=== PATIENT | male | born 1970 | race Caucasian/White ===

== ENCOUNTER 2016-11-12 13:13 | Emergency (ER) | payer OTHER ==
[2016-11-12 15:00] VITALS: BP 150/81
--- NOTE | 2016-11-12 15:19 | UC ---
Head Injury HPI - HPI Summary HPI Summary: 46 yo male with a hx of cervical fusion x 2 presents after a fall He states that this AM he slipped on ice and struck the back of his head Minimal neck pain but now has pain radiating to his left scapula which is what he noted in the past before the fusion no SHANNON no back pain - History Of Current Complaint Chief Complaint: UCHeadInjury Stated Complaint: FELL, HEAD/NECK/BACK Time Seen by Provider: 11/12/16 15:11 Hx Obtained From: Patient Onset/Duration: Sudden Onset Severity Currently: Mild Severity Initially: Moderate Pain Intensity: 3 Pain Scale Used: 0-10 Numeric Character: Dull, Throbbing Aggravating Factor(s): Other - turnin head Alleviating Factor(s): Other - c-collar Associated Signs And Symptoms: Negative: LOC (Time In Secs./Mins/Hrs), LOC Duration Unknown, Confusion, Memory Loss, Seizure, Epistaxis, Dental Malocclusion, Neck Pain, Nausea, Vomiting - Allergies/Home Medications Allergies/Adverse Reactions: Allergies Allergy/AdvReac Type Severity Reaction Status Date / Time Penicillins Allergy Unknown Verified 11/12/16 14:56 Reaction Details Home Medications: Home Medications Acetaminophen [Extra Strength Acetaminop] 1,000 mg PO PRN 11/12/16 [History] PMH/Surg Hx/FS Hx/Imm Hx Previously Healthy: Yes - Surgical History Surgical History: Yes Surgery Procedure, Year, and Place: C 3,4,5 fusion - Family History Known Family History: Positive: Hypertension - Social History Alcohol Use: Weekly Substance Use Type: None Smoking Status (MU): Heavy Every Day Tobacco Smoker Type: Cigarettes Amount Used/How Often: 1 ppd Length of Time of Smoking/Using Tobacco: 20 years Have You Smoked in the Last Year: Yes Review of Systems Constitutional: Negative Skin: Negative Eyes: Negative ENT: Negative Respiratory: Negative Cardiovascular: Negative Gastrointestinal: Negative Genitourinary: Negative Motor: Negative Neurovascular: Negative Musculoskeletal: Negative Neurological: Negative Psychological: Negative All Other Systems Reviewed And Are Negative: Yes Physical Exam Triage Information Reviewed: Yes Appearance: Well-Appearing, No Pain Distress, Well-Nourished Vital Signs: Initial Vital Signs Temp 99.0 F 11/12/16 14:51 Pulse 88 11/12/16 14:51 Resp 16 11/12/16 14:51 BP 150/81 11/12/16 14:51 Pulse Ox 96 11/12/16 14:51 Vital Signs Reviewed: Yes Eyes: Positive: Conjunctiva Clear ENT: Positive: Hearing grossly normal, Pharynx normal. Negative: Nasal congestion, Nasal drainage, Tonsillar exudate, Trismus, Muffled/hoarse voice Dental: Negative: Dental Fracture @ Neck: Positive: Supple, Nontender Respiratory: Positive: Lungs clear, Normal breath sounds, No respiratory distress, No accessory muscle use Cardiovascular: Positive: RRR, No Murmur, Pulses Normal Abdominal Exam: Normal Musculoskeletal: Positive: ROM Intact, No Edema Neurological: Positive: Alert, Muscle Tone Normal, Other: - normal gait/ strength 5/5, senory intact, CN 2-12 intact. Negative: Fatigued Psychological Exam: Normal Skin Exam: Normal Skin: Positive: rashes Head Injury Course/Dx - Differential Dx/Diagnosis Provider Diagnoses: cervical strain. DJD Discharge - Discharge Plan Condition: Stable Disposition: HOME Patient Education Materials: Cervical Strain (ED), Degenerative Disc Disease ( ED) Forms: *Work Release Referrals: Kal Huston MD [Medical Doctor] - If Needed Additional Instructions: wear soft collar or hard collar when up if they seem to help tylenol or advil for pain see neuro surgeon if pain radiating to left shoulder blade persists recheck here this weekend if not better
--- NOTE | 2016-11-12 15:52 | RAD ---
HISTORY: Trauma, neck injury, history of fusion COMPARISONS: None TECHNIQUE: Multiple contiguous axial CT scans were obtained of the cervical spine without intravenous contrast, with coronal and sagittal multiplanar reformations. FINDINGS: BRAIN: The visualized brain is unremarkable CENTRAL CANAL: Evaluation of the central canal is limited on CT technique; however, there is no obvious canalicular mass or epidural hemorrhage. ALIGNMENT: The alignment is normal, without subluxation or dislocation. VERTEBRAL BODIES: Patient is status post anterior cervical fusion at C3-C4. There is no hardware failure or osteolysis. Is multilevel anterolateral marginal osteophyte formation. There is no displaced fracture JOINTS: There is osteoarthritis of the atlantoaxial articulation with uncovertebral and facet hypertrophy. MUSCULATURE: Unremarkable INTERVERTEBRAL DISCS: There is diffuse loss of intervertebral disc height. Intervertebral graft material is noted at C3-C4 AXIAL IMAGES: C2-C3: There is no osseous neural foraminal narrowing or central canal stenosis. C3-C4: There is uncovertebral hypertrophy with moderate bilateral neural foraminal narrowing. There is no significant central canal stenosis. C4-C5: There is no osseous neural foraminal narrowing or central canal stenosis. C5-C6: There is no osseous neural foraminal narrowing or central canal stenosis. C6-C7: There is no osseous neural foraminal narrowing or central canal stenosis. C7-T1: There is no osseous neural foraminal narrowing or central canal stenosis. SOFT TISSUES: The visualized soft tissues of the neck are unremarkable. The prevertebral fat stripe is preserved. OTHER: None. IMPRESSION: 1. STATUS POST ANTERIOR CERVICAL FUSION. 2. DEGENERATIVE DISC DISEASE AND OSTEOARTHRITIS. 3. NO ACUTE OSSEOUS INJURY TO THE CERVICAL SPINE
== END 2016-11-12 16:25 | disposition home or self-care (01) ==
LOC: UCEAST 13:13
DX: S16.1XXA Strain of muscle, fascia and tendon at neck level, initial encounter (principal); W00.0XXA Fall on same level due to ice and snow, initial encounter; Y93.9 Activity, unspecified; Y92.9 Unspecified place or not applicable; M50.30 Other cervical disc degeneration, unspecified cervical region; M47.812 Spondylosis without myelopathy or radiculopathy, cervical region; Z88.0 Allergy status to penicillin; F17.210 Nicotine dependence, cigarettes, uncomplicated
CPT/HCPCS: 72125; 99202; G0463

== ENCOUNTER 2016-11-30 09:53 | Emergency (ER) | payer BC, OTHER ==
--- NOTE | 2016-11-30 11:21 | RAD ---
HISTORY: Bilateral lower extreme knee pain COMPARISONS: None relevant TECHNIQUE: Multiple transverse and longitudinal ultrasound images were obtained of the bilateral lower extremities from the level of the common femoral vein inferiorly through to the infrapopliteal veins using grayscale, color Doppler, and spectral Doppler imaging with and without compression and with augmentation. FINDINGS: VEINS: The venous system of the bilateral lower extremities is compressible throughout its course, with normal flow on color Doppler imaging and normal response to augmentation on spectral Doppler imaging. SOFT TISSUES: Unremarkable. OTHER FINDINGS: None. IMPRESSION: NO RIGHT LOWER EXTREMITY DEEP VEIN THROMBOSIS. NO LEFT LOWER EXTREMITY DEEP VEIN THROMBOSIS
[2016-11-30 11:33] VITALS: BP 145/96
--- NOTE | 2016-11-30 13:20 | ED ---
Lower Extremity - HPI Summary HPI Summary: Patient presents with bilateral calf and hamstring pain that began yesterday without incident. His muscles feel like he climbed a huge mountain or had a strenuous workout, which he had not. He denies SOB, CP, lightheadedness, N/T, weakness, difficulty walking or lower extremity swelling. He has not had fevers , chills, N/V/D, or viral illness. He has not had symptoms like this before. He does not have a regular provider. - History of Current Complaint Chief Complaint: EDExtremityUpper Stated Complaint: LEG PAIN Time Seen by Provider: 11/30/16 11:58 Hx Obtained From: Patient Mechanism Of Injury: Unknown Onset of Pain: Days - 1 Onset/Duration: Still Present Severity Initially: Mild Severity Currently: Severe Pain Intensity: 8 Timing: Constant, Lasting Days - 1 Location: Is Discrete @ - bilateral hamstrings and calves Character Of Pain: Aching Associated Signs And Symptoms: Positive: Negative Aggravating Factor(s): Movement, Other - sitting Alleviating Factor(s): Nothing Able to Bear Weight: Yes - Allergies/Home Medications Allergies/Adverse Reactions: Allergies Allergy/AdvReac Type Severity Reaction Status Date / Time Penicillins Allergy Unknown Verified 11/12/16 14:56 Reaction Details PMH/Surg Hx/FS Hx/Imm Hx Previously Healthy: Yes Endocrine/Hematology History: Denies: Hx Diabetes Cardiovascular History: Denies: Hx Hypertension, Hx Pacemaker/ICD Respiratory History: Denies: Hx Asthma History: Denies: Hx Renal Disease Sensory History: Denies: Hx Hearing Aid Psychiatric History: Denies: Hx Panic Disorder - Surgical History Surgery Procedure, Year, and Place: C 3,4,5 fusion X2 98, 2007; LEFT SHOULDER 15 YRS Infectious Disease History: No Infectious Disease History: Denies: History Other Infectious Disease, Traveled Outside the [place] in Last 30 Days - Family History Known Family History: Positive: Hypertension - Social History Occupation: Employed Full-time Lives: With Family Alcohol Use: Weekly Substance Use Type: Reports: None Smoking Status (MU): Heavy Every Day Tobacco Smoker Type: Cigarettes Amount Used/How Often: 1 ppd Length of Time of Smoking/Using Tobacco: 20 years Have You Smoked in the Last Year: Yes Cessation Counseling: Patient Advised to Stop Review of Systems Negative: Chills Negative: Chest Pain Negative: Shortness Of Breath Positive: Myalgia. Negative: Decreased ROM, Edema Negative: Bruising Negative: Weakness, Paresthesia, Numbness All Other Systems Reviewed And Are Negative: Yes Physical Exam Triage Information Reviewed: Yes Vital Signs On Initial Exam: Initial Vitals Temp Pulse Resp BP Pulse Ox 98.2 F 88 20 145/105 97 11/30/16 09:55 11/30/16 09:55 11/30/16 09:55 11/30/16 09:55 11/30/16 09:55 Vital Signs Reviewed: Yes Appearance: Positive: Well-Appearing, No Pain Distress, Well-Nourished Skin: Positive: Warm, Skin Color Reflects Adequate Perfusion, Dry, Soft Head/Face: Positive: Normal Head/Face Inspection Eyes: Positive: EOMI, THERON, Conjunctiva Clear ENT: Positive: Hearing grossly normal Respiratory/Lung Sounds: Positive: Clear to Auscultation, Breath Sounds Present Cardiovascular: Positive: RRR Musculoskeletal: Positive: Strength/ROM Intact, Pain @ - TTP bilateral calves and hamstrings, L>R; non-tender quads, knee, ankle, hips or feet.. Negative: Edema Left, Edema Right Neurological: Positive: Sensory/Motor Intact, Alert, Oriented to Person Place, Time, Reflexes Intact, NV Bundle Intact Distally. Negative: Babinski Left, Babinski Right Psychiatric: Positive: Affect/Mood Appropriate AVPU Assessment: Alert Diagnostics - Vital Signs Vital Signs Temp Pulse Resp BP Pulse Ox 11/30/16 11:32 98.3 F 85 16 145/96 97 11/30/16 09:55 98.2 F 88 20 145/105 97 - Laboratory Result Diagrams: 11/30/16 13:40 11/30/16 13:40 Lab Statement: Any lab studies that have been ordered have been reviewed, and results considered in the medical decision making process. Lower Extremity Course/Dx - Diagnoses Differential Diagnosis/HQI/PQRI: Positive: Arthritis, Bursitis, Cellulitis, Contusion, Infection, Phlebitis, Sprain, Strain Provider Diagnoses: Bilateral calf pain Discharge - Discharge Plan Condition: Stable Disposition: HOME Patient Education Materials: Musculoskeletal Pain (ED) Referrals: [facility] [place] [facility]IAN REFERRAL [Outside] Maria E Srivastava MD [Medical Doctor] - Additional Instructions: Please call Dr. Penny office for an appointment ESE in 1-3 days for evaluation. If she is not accepting new patients, please call the number provided to find a provider who is accepting new patients. Drink extra fluids and rest. Return to the emergency department if your symptoms worsen.
[2016-11-30 13:46] LABS: Hematocrit 52 % (42-52); Hemoglobin 17.2 g/dl (14.0-18.0); Mean Corpuscular HGB Conc 33 g/dl (31-36); Mean Corpuscular Hemoglobin 31 pg (27-31); Mean Corpuscular Volume 93 fL (80-94); Mean Platelet Volume 9 um3 (7.4-10.4); Red Blood Count 5.52 10^6/ul (4.0-5.4); Red Cell Distribution Width 13 % (10.5-15)
[2016-11-30 14:02] LABS: Albumin 4.3 g/dL (3.2-5.2); BUN/Creatinine Ratio 17.1 (8-20); C Reactive Protein 4.78 mg/L (< 5.00); Calcium 9.7 mg/dL (8.6-10.3); EGFR African American 129.5 (>60); EGFR Non-African American 100.7 (>60); Globulin 3.4 g/dL (2-4); Potassium 4.3 mmol/L (3.5-5.0); Total Bilirubin 0.5 mg/dL (0.2-1.0); Total Protein 7.7 g/dL (6.4-8.9)
[2016-11-30 14:40] LABS: TSH (Thyroid Stimulating Horm) 1.04 mcIU/mL (0.34-5.60)
[2016-11-30 15:31] LABS: Erythrocyte Sed Rate 5 mm/Hr (0-14)
== END 2016-11-30 16:00 | disposition home or self-care (01) ==
LOC: ED 09:53
DX: M79.662 Pain in left lower leg (principal); M79.661 Pain in right lower leg; Z88.0 Allergy status to penicillin; F17.210 Nicotine dependence, cigarettes, uncomplicated
CPT/HCPCS: 36415; 80053; 82550; 84443; 85025; 85652; 86140; 93970; 99282

== ENCOUNTER 2017-01-15 08:32 | Observation (INO) | payer OTHER ==
[~2017-01-15 08:32] MED LIST: Bacitracin IV* 50,000 UNITS INJ ONE; Buffered Lidocaine 1% SYRIN* 3 ML/SYR SYRINGE INTRADERM ONE; Lidocaine 1% MPF wEPI 200,000* 30 ML SDV ONE; NS 0.9% 1000 ML* 1,000 ML IV SCH; Thrombin 5,000 UNITS* 1 APPLIC KIT - topical use - TOPICAL ONE
[2017-01-15] MEDS ORDERED: Clindamycin 900 MG IVPREMIX(* 900 MG/50 ML SDV IV ONE (08:41)
[2017-01-15] MEDS ORDERED: fentaNYL* 50 MCG/ML 2 ML VIAL (100 MCG VIAL) ONE ×3 (09:36→12:49)
[2017-01-15] MEDS ORDERED: Midazolam* 1 MG/ML 2 ML VIAL (2 MG) ONE ×2 (09:36→10:18)
[2017-01-15] MEDS ORDERED: Dexamethasone IV* 4 MG/ML 1 ML (4 MG) ONE (10:17)
[2017-01-15] MEDS ORDERED: Famotidine IV* 10 MG/ML 2 ML (20 mg) ONE (10:17)
[2017-01-15] MEDS ORDERED: Rocuronium* 10 MG/ML VIAL ONE (10:17)
[2017-01-15] MEDS ORDERED: Lidocaine 2% PF * 5 ML VIAL ONE (10:17)
[2017-01-15] MEDS ORDERED: Ondansetron INJ* 2 MG/ML VIAL ONE (10:17)
[2017-01-15] MEDS ORDERED: Propofol* 10 MG/ML 20 ML BTL IV PUSH ONE (10:17)
[2017-01-15] MEDS ORDERED: Phenylephrine IV* 40 MCG/ML 10 ML SYRINGE ONE (10:39)
[2017-01-15] MEDS ORDERED: Desflurane* 240 ML INH ONE (10:49)
[2017-01-15] MEDS ORDERED: Acetaminophen TAB* 325 MG PO PRN ×2 (11:05→12:15)
[2017-01-15] MEDS ORDERED: DiMENhydriNATE IV* 50 MG/ML VIAL IV PUSH PRN (11:05)
[2017-01-15] MEDS ORDERED: PROCHLORPERAZINE INJ 5 MG/ML 2 ML VIAL IV PRN (11:05)
[2017-01-15] MEDS ORDERED: Levalbuterol 0.63MG/3ML NEB INH PRN (11:05)
[2017-01-15] MEDS ORDERED: Ondansetron INJ* 2 MG/ML VIAL IV PRN ×2 (11:05→12:15)
[2017-01-15] MEDS ORDERED: Hetastarch in NS* 500 ML IV ONE (11:15)
[2017-01-15] MEDS ORDERED: EPHEDrine (Pressors)* 50 MG/ML VIAL ONE (11:19)
[2017-01-15] MEDS: fentaNYL* 50 MCG/ML 2 ML VIAL (100 MCG VIAL) IV PRN ×2 (12:50→13:07)
--- NOTE | 2017-01-15 12:54 | RAD ---
INDICATION: Posterior cervical discectomy C6-C7. COMPARISON: Comparison is made with a prior x-ray study of the cervical spine from October 30, 2006. TECHNIQUE: 2 crosstable lateral films of the cervical spine were obtained in the operating room. FINDINGS: The C1-C6 4 vertebra are visualized. The lower cervical vertebra are obscured by the patient's shoulders. There are surgical instruments which project posterior. IMPRESSION: INTRAOPERATIVE CONTROL FILMS.
[2017-01-15] MEDS ORDERED: Nicotine PATCH 21 MG/24 HR* PATCH TRANSDERM SCH (13:00)
[2017-01-15] MEDS ORDERED: HYDROcodone/ACETAMIN 5-325 MG* 1 TAB ONE (13:04)
[2017-01-15] MEDS: HYDROcodone/ACETAMIN 5-325 MG* 1 TAB PO PRN ×3 (13:05→21:57)
[2017-01-15] MEDS ORDERED: Nicotine Patch Removal NOTE PATCH OFF SCH (21:00)
[2017-01-16] MEDS: HYDROcodone/ACETAMIN 5-325 MG* 1 TAB PO PRN ×2 (02:53→09:24)
--- NOTE | 2017-01-16 08:00 | PN ---
Progress Note - Progress Note SOAP: Subjective: [This is a 46 year old male s/p posterior cervical discectomy C6-7 on the left, POD #1. He complains of neck soreness and stiffness at the incision site. He is ambulating independently. He is eating and drinking well. Denies headache. Denies numbness, tingling, weakness and pain in the upper extremities. Pain well controlled with PO pain medication. He is eager to go home. ] Objective: [ Vital Signs: Temp Pulse Resp BP Pulse Ox 97.9 F 75 18 133/78 95 01/16/17 04:18 01/16/17 04:18 01/16/17 07:21 01/16/17 04:18 01/16/17 04:18 General: Alert and oriented. No distress. Sitting up in bed. Neuro: Motor and sensory intact. Incision: Intact and without swelling or infection. KERRY removed today. KERRY output 01/15/17 01/15/17 01/15/17 13:45 16:26 20:00 Output, KERRY #1 40 30 30 01/16/17 01/16/17 01/16/17 00:00 05:05 05:32 Output, KERRY #1 10 10 0 ] Assessment: [Satisfactory post-op. ] Plan: [1. Discharge home today. 2. Discharge instructions including wound care and activity level were discussed with the patient. ]
[2017-01-16 09:28] VITALS: BP 167/95
--- NOTE | 2017-01-18 05:03 | OP ---
DATE OF OPERATION: 01/15/17 - ROOM #331 DATE OF : 68 SURGEON: Kal Huston MD. SUPERVISOR MACHINING: ASHLIE Bowers. ANESTHESIOLOGIST: Dr. Estevez ANESTHESIA: General. PRE-OP DIAGNOSIS: Herniated nucleus pulposus, C6-7 on the left. POST-OP DIAGNOSIS: Herniated nucleus pulposus, C6-7 on the left. OPERATIVE PROCEDURE: Posterior cervical diskectomy, C6-7 on the left, with microdissection. DESCRIPTION OF PROCEDURE: After satisfactory general anesthesia was obtained, the patient was placed on the operating table in the prone position with the chest supported on the chest rolls and the head maintained in slight neck flexion utilizing the Shaw headrest. The posterior cervical region was then clipped, prepped and draped in a sterile manner for posterior cervical exposure and a skin incision outlined from C5 down to C7. This incision was infiltrated with 1% Xylocaine with epinephrine, after which it was turned down sharply to the level of the cervical fascia. The fascia was divided along the spinous processes from C5 to C7 on the left side and the paraspinal musculature was stripped away from these posterior elements using the periosteal elevator and monopolar cautery. An intraoperative radiograph was obtained which was difficult to interpret the location of the spinous processes due to the patient' s body habitus. Additional superior exposure was obtained until the C2 spinous process could be felt and the posterior spinous processes palpated until the correct C6-7 level was identified. Utilizing the Midas Bennett drill, the inferior aspect of the C6 lamina and superior aspect of the C7 lamina as well as the medial aspect of the facet complex was thinned out. A decompression was then carried out until the C7 nerve root was noted to be freed in its course. Hemostasis was obtained with the bipolar forceps and temporary Gelfoam. At this point of the procedure, the operating microscope was brought into the field and the remainder of the procedure done under microscopic visualization. Initially there was noted to be disk projecting into the axillary region of the nerve root exposure. An opening was made in the posterior longitudinal ligament and multiple fragments of disk removed from this region. This enabled the C7 nerve root to be more free in its course. Additional exploration was then performed of the shoulder region of the exposure and indeed several free fragments and disk material presented into this area as well. These were removed with microdissection. After assuring adequate hemostasis, the wound was thoroughly irrigated, after which a piece of Gelfoam was placed over the laminectomy defect. A drain was placed in the epidural space and tunneled out towards the left side. The fascia was then reapproximated with 0 Vicryl sutures. The subcutaneous tissue was closed with 3-0 Vicryl suture, and the skin closed with skin clips. The estimated blood loss was 100 cc and the final sponge, padding, and needle counts were correct. The patient was taken to the recovery room, extubated, and in stable condition. [id number]/[facility] #: [id number] [facility]ITALHollis
--- NOTE | 2017-01-24 01:28 | DS ---
DISCHARGE SUMMARY: DATE OF ADMISSION: 01/15/17 DATE OF DISCHARGE: 01/16/17 DISCHARGE DIAGNOSES: 1. Cervical disk displacement, C6-7, left. 2. History of anterior cervical diskectomy and fusion, C3-4 and C4-5. SPECIAL PROCEDURE: Posterior cervical diskectomy, C6-7 on the left. HOSPITAL COURSE: This 46-year-old male was seen in office with signs and symptoms of a cervical radiculopathy to the left resulting from a fall on ice on 11/12/16 at work. He failed to improve with conservative treatment over the next several weeks. Imaging confirmed disk herniation at the C6-7 to the left consistent with the patient's symptoms. At this time, he is admitted for elective surgical intervention. On the day of admission, he was taken to surgery where under general anesthesia, a posterior cervical diskectomy at C6-7 on the left patient was carried out. Postoperatively, feeling well. He was ambulating independently. Pain was well controlled with oral pain medications. He was eating, drinking and voiding without difficulty. He only complained of mild posterior neck soreness. On the first postoperative day, he was discharged home to the care of the family. Discharge instructions including wound care and activity level were discussed with the patient and provided at discharge. He will be seen in office in approximately 7 to 10 days for followup and staple removal. DISCHARGE MEDICATIONS: 1. Venedocia 5/325 mg two tabs by mouth every 4 hours as needed for pain. 2. Cyclobenzaprine 10 mg one tab up to 3 times daily as needed for muscle spasm. ASHLIE RAMIREZ [id number]/[facility] #: [id number] DARVIN
== END 2017-01-16 09:50 | disposition home or self-care (01) ==
LOC: OR 08:32 → SSU 14:36
PROVIDERS: ADMIT Neurological Surgery; ATTEND Neurological Surgery
PROC: 01N10ZZ Release Cervical Nerve, Open Approach (ICD-10-PCS; 2017-01-15)
PROC: 0RB30ZZ Excision of Cervical Vertebral Disc, Open Approach (ICD-10-PCS; principal; 2017-01-15 10:00)
DX: M50.223 Other cervical disc displacement at C6-C7 level (principal); F17.210 Nicotine dependence, cigarettes, uncomplicated
CPT/HCPCS: 72020; 88304; 93005; 94760; A9270-GY; G0378; J1100; J2001; J2250; J2405; J2704; J3010

== ENCOUNTER 2018-03-19 12:28 | Emergency (ER) | payer SELFPAY ==
--- NOTE | 2018-03-19 13:01 | UC ---
Abdominal Pain Male HPI - HPI Summary HPI Summary: intermittent cramping right mid abdomen pain, no fevers, vomiting, is hungry-no urinary sx - History of Current Complaint Hx Obtained From: Patient Onset/Duration: Gradual Onset Timing: Intermittent Episodes Lasting: Pain Intensity: 7 - 0 at time of assessment Pain Scale Used: 0-10 Numeric Location: Other - mid-right side abdomen pain Radiates: No Character: Cramping Aggravating Factor(s): Nothing Alleviating Factor(s): Nothing Associated Signs And Symptoms: Positive: Negative <Constance Brown - Last Filed: 03/19/18 13:38> <Daisy Vargas - Last Filed: 03/20/18 08:24> - History of Current Complaint Chief Complaint: UCAbdominalPain Stated Complaint: ABDOMINAL PAIN Time Seen by Provider: 03/19/18 13:00 - Allergies/Home Medications Allergies/Adverse Reactions: Allergies Allergy/AdvReac Type Severity Reaction Status Date / Time Penicillins Allergy unk Verified 03/19/18 12:41 Home Medications: Home Medications NK [No Home Medications Reported] 03/19/18 [History Confirmed 03/19/18] PMH/Surg Hx/FS Hx/Imm Hx Previously Healthy: Yes - Surgical History Surgical History: Yes Surgery Procedure, Year, and Place: C 3,4,5 fusion X2 , 2006; LEFT SHOULDER 15 YRS - Family History Known Family History: Positive: Hypertension - Social History Occupation: Employed Full-time Lives: With Family Alcohol Use: Weekly Alcohol Amount: 2 BEERS/WK Substance Use Type: None Smoking Status (MU): Heavy Every Day Tobacco Smoker Type: Cigarettes Amount Used/How Often: 1 ppd Length of Time of Smoking/Using Tobacco: 20 years Have You Smoked in the Last Year: Yes Household Exposure Type: Cigarettes - Immunization History Most Recent Influenza Vaccination: never Most Recent Pneumonia Vaccination: never <Constance Brown - Last Filed: 03/19/18 13:38> Review of Systems Constitutional: Negative Skin: Negative Eyes: Negative ENT: Negative Respiratory: Negative Cardiovascular: Negative Gastrointestinal: Abdominal Pain Genitourinary: Negative Motor: Negative Neurovascular: Negative Musculoskeletal: Negative Neurological: Negative Psychological: Negative Is Patient Immunocompromised?: No All Other Systems Reviewed And Are Negative: Yes <Constance Brown - Last Filed: 03/19/18 13:38> Physical Exam Triage Information Reviewed: Yes Appearance: Well-Appearing, No Pain Distress, Well-Nourished Vital Signs: Initial Vital Signs Temp 99.2 F 03/19/18 12:37 Pulse 83 03/19/18 12:37 Resp 15 03/19/18 12:37 BP 167/100 03/19/18 12:37 Pulse Ox 97 03/19/18 12:37 Vital Signs Reviewed: Yes Eye Exam: Normal Eyes: Positive: Conjunctiva Clear ENT Exam: Normal ENT: Positive: Normal ENT inspection, Hearing grossly normal, Pharynx normal. Negative: Trismus, Muffled voice, Hoarse voice Dental Exam: Normal Neck exam: Normal Neck: Positive: Supple, Nontender Respiratory Exam: Normal Respiratory: Positive: Chest non-tender, No respiratory distress, No accessory muscle use Cardiovascular Exam: Normal Cardiovascular: Positive: RRR, Pulses Normal, Brisk Capillary Refill Abdominal Exam: Normal Abdomen Description: Positive: Nontender, No Organomegaly, Soft. Negative: CVA Tenderness (R), CVA Tenderness (L), Distended, Guarding, Hepatomegaly, McBurney' s Point Tenderness Bowel Sounds: Positive: Present Musculoskeletal Exam: Normal Musculoskeletal: Positive: Strength Intact, ROM Intact, No Edema Neurological Exam: Normal Neurological: Positive: Alert, Muscle Tone Normal Psychological Exam: Normal Skin Exam: Normal <Constance Brown - Last Filed: 03/19/18 13:38> Vital Signs: Initial Vital Signs Temp 99.2 F 03/19/18 12:37 Pulse 83 03/19/18 12:37 Resp 15 03/19/18 12:37 BP 167/100 03/19/18 12:37 Pulse Ox 97 03/19/18 12:37 <Daisy Vargas - Last Filed: 03/20/18 08:24> Abd Pain Male Course/Dx - Course Course Of Treatment: advance diet slowly, simethicone, to ed for return of pain , fevers nausea, vomiting or diarrhea, follow BP and nicotine dependence with PCP - Differential Dx/Clinical Impression Provider Diagnoses: abdomen pain, hypertension without diagnosis, nicotine dependant <Constance Brown - Last Filed: 03/19/18 13:38> Discharge - Sign-Out/Discharge Documenting (check all that apply): Discharge/Admit/Transfer - Billing Disposition and Condition Condition: STABLE Disposition: Home <Constance Brown - Last Filed: 03/19/18 13:38> - Billing Disposition and Condition Condition: STABLE Disposition: Home <Daisy Vargas - Last Filed: 03/20/18 08:24> - Discharge Plan Condition: Stable Disposition: HOME Patient Education Materials: Simethicone (By mouth), How to Stop Smoking (ED), Gas and Bloating (ED), Abdominal Pain (ED), Hypertension (ED) Referrals: [facility] [Outside] - 1 Week [facility] [place] [facility] REFERRAL [Outside] - 1 Week Attestation Statement User Type: Provider - I was available for consult. This patient was seen by the DOMENICA. The patient was not presented to, seen by, or examined by me. -Pati <Daisy Vargas - Last Filed: 03/20/18 08:24>
[2018-03-20 01:00] VITALS: BP 167/100
== END 2018-03-19 13:38 | disposition home or self-care (01) ==
LOC: UCEAST 12:28
DX: R10.9 Unspecified abdominal pain (principal); I10 Essential (primary) hypertension; F17.210 Nicotine dependence, cigarettes, uncomplicated; Z88.0 Allergy status to penicillin
CPT/HCPCS: 81003; 99211; G0463